=== PATIENT | female | born 1990 | race Caucasian/White ===

== ENCOUNTER 2018-06-18 08:48 | Emergency (ER) | payer OTHER ==
[~2018-06-18] VITALS: Ht 162.6 cm; Wt 61.2 kg
[2018-06-18] MEDS ORDERED: SYNTHROID88 MCG ORAL (09:13)
[2018-06-18 09:19] VITALS: BP 128/81
[2018-06-18] MEDS ORDERED: Lidocaine 1% MPF 10mg/ml 5ml INJ ONE (09:30)
[2018-06-18] MEDS ORDERED: Lidocaine 1% 10mg/ml/Epi 0.005mg/ml 30ml vial INJ ONE ×2 (10:28→10:45)
[2018-06-18] MEDS ORDERED: Lidocaine 2% 20mg/ml/EPI 0.01mg/ml 20ml INJ ONE (10:45)
--- NOTE | 2018-06-18 11:29 | Emergency Room Report ---
History of Present Illness General Chief Complaint: Laceration Source: Patient Present Illness HPI Patient states that she was trying to cut a frozen bagel with a sharp kitchen knife. She states she slipped and cut her left thumb. She received a tetanus shot 4 years ago. She has no other injuries or complaints. Allergies: Coded Allergies: No Known Allergies (Unverified , 06/18/18) Patient History Past Medical History: none, see triage record Past Surgical History: other - Hypothyroid Social History: Denies: smoking, alcohol use, drug use Last Menstrual Period: 06/11/18 Reviewed Nursing Documentation: PMH: Agreed; PSxH: Agreed Nursing Documentation-PMH Past Medical History: No History, Except For Hx Cardiac Problems: No - hypothyroidsm Review of Systems All Other Systems: negative except mentioned in HPI Physical Exam Vital Signs Date Time Temp Pulse Resp B/P (MAP) Pulse Ox O2 Delivery O2 Flow Rate FiO2 06/18/18 08:55 97.6 70 16 124/80 100 Room Air 97.5 Sp02 EP Interpretation: reviewed, normal General Appearance: no apparent distress, alert, GCS 15, non-toxic Head: normocephalic, atraumatic Eyes: bilateral eye normal inspection, bilateral eye PERRL ENT: hearing grossly normal, normal pharynx, no angioedema, normal voice Neck: full range of motion Respiratory: no respiratory distress, no retraction, no accessory muscle use, speaking full sentences Rectal: deferred Musculoskeletal: back normal, gait/station normal, normal range of motion, other - L. thumb with 2mm avulsion of nail and ST at the medial aspect. Neurologic: alert, oriented x3, responsive, motor strength/tone normal, sensory intact, speech normal Psychiatric: judgement/insight normal, memory normal, mood/affect normal, no suicidal/homicidal ideation Skin: warm/dry, well hydrated, other - See above in [facility] Medical Decision Making Diagnostic Impression: Primary Impression: Laceration of thumb with damage to nail Additional Impression: Laceration of nail bed of finger ER Course This patient has a thumb tip laceration that is almost an avulsion that includes the thumbnail and nail bed. I called and discussed this with the hand surgeon, Dr. Mitch Painter and he did a nail bed and laceration repair to include a nail removal. He will follow up closely with his patient in his office. Please see his procedure note. I will also place the patient on prophylactic antibiotics. She did not require tetanus update. The patient is given close return precautions and follow-up instructions. Last Vital Signs Date Time Temp Pulse Resp B/P (MAP) Pulse Ox O2 Delivery O2 Flow Rate FiO2 06/18/18 09:19 97.5 88 21 128/81 100 Room Air 97.5 Status: improved Disposition: HOME, SELF-CARE Condition: Improved Referrals: NON PHYSICIAN (PCP) Patient Instructions: Laceration Care, Adult Ni Renee DO Jun 18, 2018 11:29
[2018-06-18 11:40] VITALS: BP 124/83
[2018-06-18] MEDS ORDERED: IBUPROFEN800 MG ORAL (11:44)
[2018-06-18] MEDS ORDERED: NORCO 5-325 TA1 EACH ORAL (11:45)
[2018-06-18] MEDS ORDERED: CEPHALEXIN500 MG ORAL (11:45)
[2018-06-18 11:50] VITALS: BP 124/83
== END 2018-06-18 11:50 | disposition home or self-care (01) ==
LOC: EMR 09:09
DX: S61.112A Laceration without foreign body of left thumb with damage to nail, initial encounter (principal); W26.0XXA Contact with knife, initial encounter; Y93.89 Activity, other specified; Y92.89 Other specified places as the place of occurrence of the external cause
CPT/HCPCS: 99283